=== PATIENT | female | born 1965 | race Caucasian/White ===

== ENCOUNTER → 2024-02-07 | Outpatient (CLI) | payer OTHER ==
[~2024-02-07] MED LIST: METR500 PO; OXYC5 PO
[2024-02-07 20:29] LABS: Candida Group, PCR NOT DETECTED (NOT DETECT); Candida glabrata-krusei, PCR NOT DETECTED (NOT DETECT)
[2024-02-07 20:37] LABS: Bacterial Vaginosis PCR Positive (NEGATIVE)
[2024-02-12 13:08] LABS: APTIMA MEDIA TYPE MultiTest Swab; C. TRACHOMATIS BY TMA Negative (Negative); N. GONORRHOEAE BY TMA Negative (Negative); SPECIMEN SOURCE Not Provided; T. VAGINALIS BY TMA Positive (Negative)
== END | disposition short-term general hospital (02) ==
LOC: LAB 14:22 → LAB SHORT 14:22
PROVIDERS: Registered Nurse Community Health
DX: Z11.3 Encounter for screening for infections with a predominantly sexual mode of transmission (principal); N89.8 Other specified noninflammatory disorders of vagina; Z20.2 Contact with and (suspected) exposure to infections with a predominantly sexual mode of transmission
CPT/HCPCS: 87481; 87491; 87591; 87661; 87801

== ENCOUNTER 2024-02-09 03:08 | Inpatient (IN) | payer OTHER ==
[2024-02-09] VITALS (17 sets, daily range): BP systolic 108–167; BP diastolic 49–88
[~2024-02-09] VITALS: Ht 154.9 cm; Wt 79.0 kg
[2024-02-09] MEDS ORDERED: Morphine Sulfate 4 MG/1 ML Injection IV ONE (03:35)
[2024-02-09] MEDS ORDERED: Lactated Ringer's 1,000 ML IV ONE ×2 (03:35→10:38)
[2024-02-09] MEDS ORDERED: Ondansetron HCl 2 MG / ML 2ML Vial IV ONE (03:35)
[2024-02-09 03:46] LABS: BASOPHILS ABSOLUTE AUTO 0.06 K/mm3 (0.00-0.23); BASOPHILS PERCENT AUTO 1 % (0-2); EOSINOPHILS ABSOLUTE AUTO 0.09 K/mm3 (0.00-0.68); EOSINOPHILS PERCENT AUTO 1 % (0-6); Hematocrit 46.2 % (33.0-51.0); Hemoglobin 15.9 g/dL (11.5-16.0); IMMATURE GRAN ABSOLUTE AUTO 0.03 K/mm3 (0.00-0.10); IMMATURE GRAN PERCENT AUTO 0 % (0-1); LYMPHOCYTES ABSOLUTE AUTO 2.32 K/mm3 (0.84-5.20); LYMPHOCYTES PERCENT AUTO 20 % (21-46); MONOCYTES ABSOLUTE AUTO 0.66 K/mm3 (0.16-1.47); MONOCYTES PERCENT AUTO 6 % (4-13); Mean Corpuscular HGB 30.8 pg (26.0-34.0); Mean Corpuscular HGB Conc 34.4 g/dL (31.5-36.5); Mean Corpuscular Volume 89 fL (80-100); Mean Platelet Volume 10.5 fL (9.1-12.4); NEUTROPHILS ABSOLUTE AUTO 8.45 K/mm3 (1.96-9.15); NEUTROPHILS PERCENT AUTO 73 % (41-73); Platelet Count 320 K/mm3 (150-400); RDW Coefficient Variation 13.1 % (11.7-14.2); RDW Standard Deviation 42.9 fL (35.1-46.3); Red Blood Cell Count 5.17 M/mm3 (3.80-5.20); White Blood Cell Count 11.61 K/mm3 (4.00-11.30)
[2024-02-09 04:02] LABS: Albumin, Blood 3.6 g/dL (3.4-5.0); Bilirubin, Total 1.1 mg/dL (0.1-1.0); Bun/Creatinine Ratio 29.3 (12.0-20.0); Calcium, Blood 10.4 mg/dL (8.5-10.1); Creatinine, Blood 0.51 mg/dL (0.40-1.00); Globulin, Blood 3.7 g/dL (2.2-4.0); Magnesium, Blood 1.7 mg/dL (1.6-2.4); Total Protein, Blood 7.3 g/dL (6.4-8.2)
[2024-02-09] MEDS ORDERED: Ketamine HCL 10 MG in NS 100 ML IV ONE (04:15)
[2024-02-09] MEDS ORDERED: HYDROmorphone HCl/Pf 1MG SYR IV ONE (05:50)
[2024-02-09 07:47] LABS: Source, Urine Clean Catch
[2024-02-09 07:54] LABS: Appearance, Urine Clear (Clear); Bilirubin, Urine Neg (Neg); Blood, Urine 1+ (Neg); Color, Urine Yellow (P-Yellow); Glucose Qualitative, Urine 1+ (Neg); Ketones, Urine Neg (Neg); Leukocyte Esterase, Urine 3+ (Neg); Nitrite, Urine Neg (Neg); Protein, Urine Neg (Neg); Specific Gravity, Urine 1.015 (1.003-1.022); Urobilinogen, Urine NORM (Normal)
[2024-02-09 08:00] LABS: Bacteria Mod /hpf; Squamous Epithelial Cells Mod /hpf (Few); White Blood Cells, Urine 50-100 /hpf (0-5)
[2024-02-09] MEDS ORDERED: Docusate Sodium/Senna 1 Tab PO PRN (08:05)
[2024-02-09] MEDS ORDERED: FLU VACC TS2024-25(6MOS UP)/PF 45 MCG/0.5 ML SYRINGE IM SCH (08:05)
[2024-02-09] MEDS ORDERED: Ondansetron HCl 2 MG / ML 2ML Vial IV PRN (08:05)
[2024-02-09] MEDS ORDERED: Ketorolac Tromethamine 30mg Vial IV PRN (08:05)
[2024-02-09] MEDS ORDERED: HYDROmorphone HCl/Pf 1MG SYR IV PRN (08:05)
[2024-02-09] MEDS ORDERED: Polyethylene Glycol 3350 17 gm PO PRN (08:05)
[2024-02-09] MEDS ORDERED: MetroNIDAZOLE 500MG/NS 100 ml 100 ML IV ONE (09:10)
--- NOTE | 2024-02-09 10:49 | NUR ---
SURGERY: PT TO PREOP AT THIS TIME. PT VOIDED AND CHANGED INTO GOWN. JEWELRY REMOVED. PT VOIDED. PREOP SURGICAL WASH COMPLETED. SURGICAL PKT COMPLETED AND PLACED ON CHART. WILL CONT TO MONITOR WHEN PT RETURNS TO ROOM POST OP.
[2024-02-09] MEDS ORDERED: Ondansetron HCl 2 MG / ML 2ML Vial ONE (10:57)
[2024-02-09] MEDS ORDERED: Dexamethasone Sodium Phosphate 4 MG/ML 5ML VIAL ONE (10:57)
--- NOTE | 2024-02-09 11:01 | NUR ---
PT IN PACU FOR PRE-OP, John FENG ASSEMBLY REPAIRER AT BEDSIDE CONSULTING WITH PT
[2024-02-09] MEDS ORDERED: DiphenhydrAMINE HCl 50 MG/ML 1ML Vial ONE (11:02)
[2024-02-09] MEDS ORDERED: Famotidine 10 MG/ML 2ML Vial ONE (11:10)
[2024-02-09] MEDS ORDERED: Bupivacaine 0.5% HCl 5 MG/ML 30MLVIAL ONE ×2 (11:11→11:44)
[2024-02-09] MEDS ORDERED: propofoL 20 ML IV ONE (11:25)
[2024-02-09] MEDS ORDERED: FentaNYL Citrate 50 MCG/ML 2 ML Injection ONE ×4 (11:26→14:36)
[2024-02-09] MEDS ORDERED: CeFAZolin Sodium 1000 mg Vial ONE (12:19)
--- NOTE | 2024-02-09 12:21 | NUR ---
02/09/24 1221 Yoel Granados 2G ANCEF GIVEN INTRAOP BY ANESTHESIA AT 1220
[2024-02-09] MEDS ORDERED: Rocuronium Bromide 10 MG/ML 5ML Injection IV ONE ×2 (12:44→13:16)
[2024-02-09] MEDS ORDERED: Ketorolac Tromethamine 30mg Vial ONE (13:16)
[2024-02-09] MEDS ORDERED: Sugammadex Sodium 200 MG/2ML SDV (100 MG/ML) ONE (14:05)
[2024-02-09] MEDS ORDERED: OxyCODONE HCL 5 MG TAB PO PRN (14:15)
--- NOTE | 2024-02-09 15:20 | NUR ---
POST OP: PT ARRIVED TO ROOM 224 POST OP HERNIA REPAIR WITH MESH. VSS. PT PAIN IS REPORTED MINIMAL. LAP SITES X4 CLEAN AND DRY. BINDER IN PLACE. PT GIVEN ICE CHIPS. NO NAUSEA. MIN ASSIST OOB TO BATHROOM TO VOID. WILL CONT TO MONITOR.
--- NOTE | 2024-02-09 17:29 | NUR ---
PT HAS BEEN STABLE POST OP FOR HERNIA REPAIR. LAP SITES CDI. TOLERATING REG DIET WITHOUT NAUSEA. ROXICODONE EFFECTIVE FOR PAIN. PT HAS NOT PASSED FLATUS YET AND IS EXPERIENCING GAS LIKE PAIN. VOIDING WELL. CONT FLAGYL FOR BACTERIAL VAGINOSIS. OOB WITH MIN ASSIST. VOIDING WELL. IV S.L. LABS ORDERED FOR AM. USES CALL LIGHT APPROPRIATELY NEEDED.
[2024-02-09] MEDS ORDERED: MetroNIDAZOLE 500 MG Tab PO SCH (21:00)
--- NOTE | 2024-02-10 04:02 | NUR ---
SHIFT SUMMARY PT IS POD1 FOR A HERNIA REPAIR. INCISIONS C/D/I. BINDER IN PLACE, PT STATES IT HELPS HER PAIN. PT TOLERATING REG DIET, PASSING GAS, NO BM, VOIDING APPROPRIATELY. VSS. NO COMPLAINTS OF NAUSEA. PAIN MANAGED W/ OXY AND TORADOL. PLAN FOR POSSIBLE D/C TOMORROW.
[2024-02-10 04:20] VITALS: BP 107/50
[2024-02-10 06:48] LABS: BASOPHILS ABSOLUTE AUTO 0.05 K/mm3 (0.00-0.23); BASOPHILS PERCENT AUTO 0 % (0-2); EOSINOPHILS ABSOLUTE AUTO 0.03 K/mm3 (0.00-0.68); EOSINOPHILS PERCENT AUTO 0 % (0-6); Hematocrit 39.7 % (33.0-51.0); Hemoglobin 13.5 g/dL (11.5-16.0); IMMATURE GRAN ABSOLUTE AUTO 0.05 K/mm3 (0.00-0.10); IMMATURE GRAN PERCENT AUTO 0 % (0-1); LYMPHOCYTES ABSOLUTE AUTO 1.01 K/mm3 (0.84-5.20); LYMPHOCYTES PERCENT AUTO 9 % (21-46); MONOCYTES ABSOLUTE AUTO 0.79 K/mm3 (0.16-1.47); MONOCYTES PERCENT AUTO 7 % (4-13); Mean Corpuscular HGB 30.8 pg (26.0-34.0); Mean Corpuscular Volume 91 fL (80-100); NEUTROPHILS ABSOLUTE AUTO 9.74 K/mm3 (1.96-9.15); NEUTROPHILS PERCENT AUTO 83 % (41-73); RDW Coefficient Variation 13.3 % (11.7-14.2); RDW Standard Deviation 44.5 fL (35.1-46.3); Red Blood Cell Count 4.38 M/mm3 (3.80-5.20); White Blood Cell Count 11.67 K/mm3 (4.00-11.30)
[2024-02-10 06:57] LABS: Albumin/Globulin Ratio 0.9 (0.8-1.8); Bilirubin, Total 1.1 mg/dL (0.1-1.0); Bun/Creatinine Ratio 25.6 (12.0-20.0); Calcium, Blood 8.9 mg/dL (8.5-10.1); Creatinine, Blood 0.51 mg/dL (0.40-1.00); Globulin, Blood 3.2 g/dL (2.2-4.0); Total Protein, Blood 6.2 g/dL (6.4-8.2)
[2024-02-10 07:18] VITALS: BP 117/54
[2024-02-10 07:31] LABS: Mean Platelet Volume 11.2 fL (9.1-12.4); Platelet Count 279 K/mm3 (150-400)
[2024-02-10] MEDS ORDERED: Acetaminophen 325 MG TABLET PO PRN (09:30)
[2024-02-10] MEDS ORDERED: NS 1,000 ML IV SCH (10:00)
[2024-02-10] MEDS ORDERED: METR500 PO ×2 (12:55)
[2024-02-10] MEDS ORDERED: OXYC5 PO ×2 (12:56)
[2024-02-10 15:06] VITALS: BP 128/62
== END 2024-02-10 16:32 | disposition home or self-care (01) | DRG 354 ==
LOC: ER 03:08 → SURS 08:01
PROVIDERS: Student in an Organized Health Care Education/Training Program; Surgery; ADMIT Family Medicine
PROC: 8E0W4CZ Robotic Assisted Procedure of Trunk Region, Percutaneous Endoscopic Approach (ICD-10-PCS; 2024-02-09)
PROC: 0WUF4JZ Supplement Abdominal Wall with Synthetic Substitute, Percutaneous Endoscopic Approach (ICD-10-PCS; principal; 2024-02-09 10:30)
DX: K43.0 Incisional hernia with obstruction, without gangrene (principal); E87.1 Hypo-osmolality and hyponatremia; E83.52 Hypercalcemia; R73.9 Hyperglycemia, unspecified; N76.0 Acute vaginitis; E66.9 Obesity, unspecified; F41.9 Anxiety disorder, unspecified; G89.29 Other chronic pain; Z90.49 Acquired absence of other specified parts of digestive tract; Z98.84 Bariatric surgery status; Z88.0 Allergy status to penicillin; Z11.3 Encounter for screening for infections with a predominantly sexual mode of transmission; Z20.2 Contact with and (suspected) exposure to infections with a predominantly sexual mode of transmission
CPT/HCPCS: 36415; 74177; 80053; 81001; 81025; 83690; 83735; 85025; 87086; 87481; 87491; 87591; 87661; 87801; 96361; 96374-59; 96375; 99285-25; A9270; C1781; J0690; J1100; J1170; J1200; J1885; J2270; J2405; J2704; J3010; J7120; Q9967

== ENCOUNTER → 2025-02-19 | Outpatient (CLI) | payer OTHER | LOC: LAB SHORT 13:39 → LAB 13:39 | DX: N30.01 Acute cystitis with hematuria (principal) | CPT/HCPCS: 87077; 87086; 87186 ==